=== PATIENT | male | born 1940 | race Caucasian/White ===

== ENCOUNTER 2022-01-01 12:30 | Emergency (ER) | payer OTHER, SELFPAY ==
[2022-01-01 12:37] VITALS: BP 160/77; PULSE 82; RESP 20; TEMP 36.8; O2SAT 94; BMI 28.7
--- NOTE | 2022-01-01 12:46 | XR_ITS ---
WS: [id number] Portable AP upright chest, 01/01/2022 Clinical Data: cough congestion Comparison: None. Findings: No nodules or masses are seen. There are minute bilateral pleural effusions. There is a min imal patchy left lower lobe opacity which could represent atelectasis and/or pneumonia. The diaphragm s are flattened. The heart is normal. The pulmonary vascularity is not increased. No pneumothorax is seen. The aortic arch and descending thoracic aorta show calcification and tortuosity. XR/XR chest 1V portable [id number] Impression: 1. Minimal patchy left lower lobe opacity which could represent atelectasis and /or pneumonia. 2. Small bilateral pleural effusions. 3. Atherosclerosis.
--- NOTE | 2022-01-01 12:47 | W.ED.URI ---
HPI - URI/Sore Throat General: Chief Complaint: Upper Respiratory Infection Stated Complaint: sent for xrays Time Seen by Provider: 01/01/22 12:46 History of Present Illness: 81-year-old male patient comes in today with complaints of illness over the last 2 days. Patient reports coughing up green sputum. Patient was referred from the [place] office for further evaluation and treatment. Patient had an appointment to be seen today but was referred to the ER due to the illness. Patient appears nontoxic. Patient appears in no pain. Associated symptoms: Deny fever(s) Review of Systems Const: Denies: fever(s) Resp: Reports: productive cough Physical Exam Const: COMMON NORMALS: alert HENMT: COMMON NORMALS: normocephalic HEAD & SCALP: normocephalic Resp: COMMON NORMALS: normal respiratory effort AUSCULTATION: diminished lung sounds (bases) Cardio: COMMON NORMALS: regular rate and regular rhythm RATE: regular rate RHYTHM: regular rhythm Extremity: COMMON NORMALS: no pedal edema Neuro: SENSORIUM/ORIENTATION: Yes alert Skin: COMMON NORMALS: turgor normal GENERAL SKIN EXAM: turgor normal Course Vital Signs: Vital signs: Vital Signs Temperature 98.3 F 01/01/22 12:37 Pulse Rate 82 01/01/22 12:37 Respiratory Rate 20 H 01/01/22 12:37 Blood Pressure 160/77 01/01/22 12:37 Pulse Oximetry 94 01/01/22 12:37 Oxygen Delivery Me thod 01/01/22 12:37 MDM - URI/Sore Throat Medical Decision Making Patient comes in today for evaluation of illness for 2 days. [facility] and was referred to the ER due to his illness. On exam patient appears nontoxic. Patient has decreased breath sounds in bilateral late bases of lungs. Posterior pharynx is erythematous. Patient has nasal discharge. Differential diagnosis includes but not limited to pneumonia, COVID-19, seasonal allergies, rhinosinusitis/bronchitis. Chest x-ray noted blunting of bilateral lower apexes suggested mild effusion, haziness in the left lower lung that may be atelectasis or mild pneumonia. 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 COVID-19 PCR test was collected and sent to lab. Patient will be treated with doxycycline 100 mg 2 times a day for 7 days for possible pneumonia. Patient will be also given 10 mg of dexamethasone x1. Patient reported understanding of care plan and need for follow-up or return to the ER. Lab Data Radiology Impressions Chest X-Ray 01/01/22 12:46 Impression: 1. Minimal patchy left lower lobe opacity which could represent atelectasis and/or pneumonia. 2. Small bilateral pleural effusions. 3. Atherosclerosis. Discharge Plan Discharge Patient Disposition: Home Clinical Impression: Acute rhinosinusitis, Abnormal chest x-ray Condition: Stable Prescriptions: New doxycycline monohydrate 100 mg capsule 100 mg PO BID 7 Days Qty: 14 0RF cetirizine 10 mg tablet 10 mg PO DAILY Qty: 30 0RF guaifenesin 600 mg tablet extended release 12hr 600 mg PO BID Qty: 20 0RF Discharge Orders: Discharge ED (Routine); Ordered 01/01/22 Ordered By: Samson Kaur Referrals: Sun Ennis MD [Primary Care Provider] - Discharge Diet: Usual diet Discharge Activity: Increase activity as tolerated Activity Restrictions/Additional Instructions: Home and rest. Drink plenty of water and fluids with antibiotics. We will contact you with your COVID-19 result if positive. Follow-up with primary care as needed. Return to ER for worsening symptoms such as severe shortness of breath, chest pain, or new concerns. 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
[2022-01-01] MEDS: dexamethasone 4 mg Tablet 10 MG PO (12:59)
[2022-01-01] MEDS: doxycycline 100 mg Tablet PO (12:59)
[2022-01-01 13:35] VITALS: BP 134/82; PULSE 71; RESP 15; TEMP 37.2; O2SAT 99
[2022-01-01 14:56] LABS: Adenovirus Not Detected (NOT DETECT); Chlamydia Pneumoniae Not Detected (NOT DETECT); Coronavirus 229E,HKU1,NL63,OC4 Not Detected (NOT DETECT); Human Metapneumovirus Not Detected (NOT DETECT); Human Rhinovirus/Enterovirus Not Detected (NOT DETECT); Influenza A Not Detected (NOT DETECT); Influenza A H1 Not Detected (NOT DETECT); Influenza A H1-2009 Not Detected (NOT DETECT); Influenza A H3 Not Detected (NOT DETECT); Influenza B Not Detected (NOT DETECT); Mycoplasma Pneumoniae Not Detected (NOT DETECT); Parainfluenza Virus Type 1 Not Detected (NOT DETECT); Parainfluenza Virus Type 2 Not Detected (NOT DETECT); Parainfluenza Virus Type 3 Not Detected (NOT DETECT); Parainfluenza Virus Type 4 Not Detected (NOT DETECT); Respiratory Syncytial Virus A Not Detected (NOT DETECT); Respiratory Syncytial Virus B Not Detected (NOT DETECT); SARS-COV-2 Not Detected (NOT DETECT)
== END 2022-01-01 13:36 | disposition home or self-care (01) ==
PROVIDERS: Emergency Provider Nurse Practitioner Family; PCP Family Medicine
DX: J01.90 Acute sinusitis, unspecified (principal); R91.8 Other nonspecific abnormal finding of lung field; Z20.822 Contact with and (suspected) exposure to COVID-19
CPT/HCPCS: 71045; 87635; 99283; J8540